=== PATIENT | female | born 1935 | race Caucasian/White ===

== ENCOUNTER 2016-11-05 20:47 | Emergency (ER) | payer MEDICARE, OTHER | END 2016-11-05 22:25 | disposition home or self-care (01) | LOC: ER 20:47 | DX: I48.91 Unspecified atrial fibrillation (principal); R06.02 Shortness of breath; R05 Cough; T36.3X5A Adverse effect of macrolides, initial encounter; K21.9 Gastro-esophageal reflux disease without esophagitis; I10 Essential (primary) hypertension; E78.5 Hyperlipidemia, unspecified; Z79.01 Long term (current) use of anticoagulants; Z79.899 Other long term (current) drug therapy; Z88.0 Allergy status to penicillin; Z88.2 Allergy status to sulfonamides; Z88.8 Allergy status to other drugs, medicaments and biological substances | CPT/HCPCS: 36415 ==